=== PATIENT | male | born 1945 | race Caucasian/White ===

== ENCOUNTER 2023-06-17 07:22 | Day surgery (SDC) | payer OTHER ==
[~2023-06-17] VITALS: Ht 165.1 cm; Wt 62.5 kg
[~2023-06-17 07:22] MED LIST: ATOR1TAB21 PO; CEFUROXIME 1MG/0.1ML INTRACAMERAL INJ As Ordered ONE; CYCLOPENTOLATE 1% OPHTH SOLN 2ML BTL OS SCH; D 50CAP2 PO; LIDOCAINE 1% SDV 5ML VIAL As Ordered ONE; LISI20TA33 PO; MIDAZOLAM INJ 2MG/2ML VIAL As Ordered ONE; OFLOXACIN 0.3 % (OCUFLOX) OPTH SOL 5ML OS SCH; PHENYLEPHRINE 2.5% OPHTH SOL 2ML OS SCH; PROPARACAINE 0.5% OPHTH SOL 15ML OS ONE; TROPICAMIDE 1% OPHTH SOLN 15ML OS SCH; fentaNYL 100 MCG/2 ML INJECTION As Ordered ONE
[2023-06-17] MEDS ORDERED: BSS IRR 500ML/OMIDRIA 4ML IRR BAG (OR ONLY) As Ordered ONE (08:38)
[2023-06-17] MEDS ORDERED: TRYPAN BLUE 0.06 % 2.25 ML OPHTH SYR (VISIONBLUE) As Ordered ONE (09:06)
[2023-06-17] MEDS ORDERED: TOBRADEX OPHTH OINT 3.5 GM As Ordered ONE (10:25)
[2023-06-17 10:30] VITALS: BP 162/90; TEMP 97.4; O2SAT 97
[2023-06-17] MEDS ORDERED: DUOVISC (0.50ML VISCOAT/0.85ML PROVISC) OPHTH KIT As Ordered ONE (12:02)
== END 2023-06-17 10:55 | disposition home or self-care (01) ==
LOC: M SDC 07:22
PROVIDERS: ATTEND Ophthalmology
DX: H25.12 Age-related nuclear cataract, left eye (principal); H40.1120 Primary open-angle glaucoma, left eye, stage unspecified; H21.81 Floppy iris syndrome; H21.562 Pupillary abnormality, left eye; I10 Essential (primary) hypertension; E78.00 Pure hypercholesterolemia, unspecified; F17.290 Nicotine dependence, other tobacco product, uncomplicated; Z79.899 Other long term (current) drug therapy
CPT/HCPCS: 66174; 66982; C1889; J0697; J1097; J2250; J3010; L8699; V2632

== ENCOUNTER → 2023-07-15 | Day surgery (SDC) | payer OTHER ==
[~2023-07-15] VITALS: Ht 165.1 cm; Wt 63.1 kg
[~2023-07-15] MED LIST changes: +BSS IRR 500ML/OMIDRIA 4ML IRR BAG (OR ONLY) As Ordered ONE; +CYCLOPENTOLATE 1% OPHTH SOLN 2ML BTL OD SCH; -CYCLOPENTOLATE 1% OPHTH SOLN 2ML BTL OS SCH; +DUOVISC (0.50ML VISCOAT/0.85ML PROVISC) OPHTH KIT As Ordered ONE; +LABETALOL 100MG/20ML VIAL As Ordered ONE; -LIDOCAINE 1% SDV 5ML VIAL As Ordered ONE; +OFLOXACIN 0.3 % (OCUFLOX) OPTH SOL 5ML OD SCH; -OFLOXACIN 0.3 % (OCUFLOX) OPTH SOL 5ML OS SCH; +PHENYLEPHRINE 2.5% OPHTH SOL 2ML OD SCH; -PHENYLEPHRINE 2.5% OPHTH SOL 2ML OS SCH; +PROPARACAINE 0.5% OPHTH SOL 15ML OD ONE; -PROPARACAINE 0.5% OPHTH SOL 15ML OS ONE; +TROPICAMIDE 1% OPHTH SOLN 15ML OD SCH; -TROPICAMIDE 1% OPHTH SOLN 15ML OS SCH
[2023-07-15 10:39] VITALS: TEMP 97; O2SAT 95
[2023-07-15 11:10] VITALS: BP 168/82
== END | disposition home or self-care (01) ==
LOC: M SDC 08:20
PROVIDERS: ATTEND Ophthalmology
DX: H25.11 Age-related nuclear cataract, right eye (principal); H57.03 Miosis; I10 Essential (primary) hypertension; E78.00 Pure hypercholesterolemia, unspecified; Z79.899 Other long term (current) drug therapy; F17.290 Nicotine dependence, other tobacco product, uncomplicated
CPT/HCPCS: 66174; 66982; C1889; J0697; J1097; J1920; J2250; J3010; V2632